=== PATIENT | female | born 1995 ===

== ENCOUNTER → 2017-08-19 | Outpatient (CLI) | payer OTHER ==
--- NOTE | 2017-08-19 16:01 | RADIOLOGY IMAGING REPORT ---
[place] [facility] [place] NAME: Trang Mcgee : 1995 MR: [id number] V: [id number] EXAM DATE: [id number] ORDERING PHYSICIAN: GIOVANA BARNETT TECHNOLOGIST: Location: [facility] Patient: Trang Mcgee : 1995 Visit/Account:[id number] Date of Sevice: 08/19/2017 Exam type: FOOT 3 VIEW RIGHT History: Right foot and ankle injury, inversion on Saturday Comparison: None Findings: There is no evidence of acute fracture or dislocation involving the right foot. No radiopaque foreig n body seen. No significant arthritic change identified.. IMPRESSION: 1. No evidence of acute fracture-dislocation involving the right foot Report Dictated By: Laverne Madsen MD at 08/19/2017 3:55 PM Report E-Signed By: Laverne Madsen MD at 08/19/2017 3:57 PM WSN:[email or web address]
--- NOTE | 2017-08-19 16:03 | RADIOLOGY IMAGING REPORT ---
FACILITY: [facility] - [place] PATIENT NAME: Trang Mcgee : 1995 MR: [id number] V: [id number] EXAM DATE: [id number] ORDERING PHYSICIAN: GIOVNAA BARNETT TECHNOLOGIST: [place] [facility] [facility] [place] Trang Mcgee : 1995 Visit/Account:[id number] Date of Sevice: 08/19/2017 Exam type: ANKLE 3 VIEW MIN RIGHT History: Right ankle and foot inversion three days ago Comparison: None. Findings: Three views of the right ankle reveal no evidence of acute fracture or dislocation. This mild soft t issue swelling over the lateral aspect of the right ankle. Ankle mortise appears to be intact no rad iopaque foreign bodies are seen IMPRESSION: 1. Mild soft tissue spine over the lateral aspect the right ankle although no evidence of acute frac ture or dislocation seen Report Dictated By: Laverne Madsen MD at 08/19/2017 3:57 PM Report E-Signed By: Laverne Madsen MD at 08/19/2017 3:59 PM WSN:[email or web address]
== END ==
LOC: RAD 11:42
PROVIDERS: ATTEND Physician Assistant
DX: M25.471 Effusion, right ankle (principal)